=== PATIENT | male | born 1985 | race Caucasian/White ===

== ENCOUNTER 2016-05-18 07:51 | Emergency (ER) | payer SELFPAY ==
[~2016-05-18] VITALS: Ht 182.9 cm; Wt 72.6 kg
[2016-05-18 08:57] VITALS: BP 136/77
== END 2016-05-18 09:00 | disposition home or self-care (01) ==
LOC: M ED 08:49
DX: F41.9 Anxiety disorder, unspecified (principal); R45.4 Irritability and anger

== ENCOUNTER 2016-07-14 07:53 | Emergency (ER) | payer SELFPAY ==
[~2016-07-14] VITALS: Ht 182.9 cm; Wt 75.3 kg
[2016-07-14] MEDS ORDERED: EXCETAB81 PO (08:07)
[2016-07-14] MEDS ORDERED: TYLE500T78 PO (09:22)
[2016-07-14] MEDS ORDERED: AUGM875T27 PO (09:22)
[2016-07-14] MEDS ORDERED: IBUP80TA PO (09:22)
[2016-07-14 09:26] VITALS: BP 125/72
== END 2016-07-14 09:30 | disposition home or self-care (01) ==
LOC: M ED 08:46
DX: K02.9 Dental caries, unspecified (principal); F41.9 Anxiety disorder, unspecified; F17.200 Nicotine dependence, unspecified, uncomplicated

== ENCOUNTER 2017-09-01 20:59 | Emergency (ER) | payer SELFPAY ==
[2017-09-01] MEDS: ONDANSETRON 4MG/2ML VIAL (J2405) IV (21:18)
[2017-09-01] MEDS: KETOROLAC 30 MG/ML VIAL (J1885) IV (21:19)
[2017-09-01 21:21] LABS: BASO # 0.1 10^3/uL (0.0-0.2); BASO % 0.6 % (0.0-1.0); EOS # 0.6 10^3/uL (0.0-0.50); EOS % 3.5 % (0.0-3.0); HEMATOCRIT 40.9 % (42.0-52.0); HEMOGLOBIN 13.9 g/dl (13.5-17.5); IMMATURE GRANULOCYTE % 0.4 % (0-3.0); LYMPH # 3.8 10^3/uL (1.5-4.5); LYMPH % 22.9 % (24.0-44.0); MEAN CORPUSCULAR HEMOGLOBIN 32.1 pg (27.0-33.0); MEAN CORPUSCULAR VOLUME 94.5 fl (80.0-96.0); MONO # 1.3 10^3/uL (0.0-0.8); MONO % 7.9 % (0.0-5.0); NEUTROPHILS # 10.8 10^3/uL (1.8-7.7); NEUTROPHILS % 64.7 % (36.0-66.0); PLATELET COUNT, AUTOMATED 289 10^3/uL (150-450); RED BLOOD COUNT 4.33 10^6/uL (4.30-6.10); RED CELL DISTRIBUTION WIDTH 12.7 % (11.5-14.5); WHITE BLOOD COUNT 16.7 10^3/uL (4.0-10.0)
[2017-09-01] MEDS: NS 1,000 ML IV (21:21)
[2017-09-01 21:27] LABS: CALCIUM OXALATE CRYSTALS RFX MODERATE; KETONE, URINE AUTO RFX TRACE mg/dL (NEGATIVE); MUCUS, URINE RFX SMALL (NEGATIVE); NITRITE, URINE AUTO RFX NEGATIVE (NEGATIVE); RBC, URINE AUTO RFX 22 /HPF (0-3); SPECIFIC GRAVITY UR AUTO RFX 1.028 (1.002-1.035); SQUAM EPITHELIAL CELL UR AURFX 0 /HPF (0-6); WBC, URINE AUTO RFX 4 /HPF (0-3)
[2017-09-01 21:28] LABS: LEUKOCYTE ESTERASE UR AUTO RFX TRACE (NEGATIVE)
[2017-09-01] MEDS: MORPHINE 4 MG/ML 1ML VIAL/SYRINGE (J2270) IV ×2 (21:58→23:30)
[2017-09-01 21:59] LABS: ALBUMIN/GLOBULIN RATIO 1.25 (1.00-1.93); ALKALINE PHOSPHATASE 82 U/L (45-117); ALT/SGPT 21 U/L (12-78); ANION GAP 10 MEQ/L (8-16); AST/SGOT 10 U/L (7-37); BILIRUBIN,DIRECT 0.1 MG/DL (0.0-0.2); BILIRUBIN,TOTAL 0.5 MG/DL (0.2-1.0); BLOOD UREA NITROGEN 14 MG/DL (7-18); CALCIUM LEVEL 8.8 MG/DL (8.5-10.1); CARBON DIOXIDE LEVEL 22 MEQ/L (21-32); CHLORIDE LEVEL 109 MEQ/L (98-107); CREATININE FOR GFR 1.17 MG/DL (0.70-1.30); GLOMERULAR FILTRATION RATE > 60.0 (>60); GLUCOSE, FASTING 128 MG/DL (70-100); POTASSIUM SERUM 3.8 MEQ/L (3.5-5.1); SODIUM LEVEL 141 MEQ/L (136-145); TOTAL PROTEIN 7.2 GM/DL (6.4-8.2)
[2017-09-01] MEDS: TAMSULOSIN 0.4 MG CAP PO (23:42)
[2017-09-01] MEDS: CIPROFLOXACIN 500 MG TAB PO (23:42)
[2017-09-01] MEDS: NORCO 5/325MG TABLET (BULK FOR ED) PO (23:42)
== END 2017-09-02 00:19 | disposition home or self-care (01) ==
LOC: M ED 09-02 00:19
DX: N20.1 Calculus of ureter (principal); N30.90 Cystitis, unspecified without hematuria; N13.30 Unspecified hydronephrosis; F41.9 Anxiety disorder, unspecified; F17.210 Nicotine dependence, cigarettes, uncomplicated
CPT/HCPCS: J2270

== ENCOUNTER → 2018-04-05 | Outpatient (CLI) | payer SELFPAY ==
[~2018-04-05] MED LIST: AUGM875T28 PO; CIPR-249 PO; EXCETAB81 PO; FLOM0.4C39 PO; IBUP80TA PO; NORCOTAB PO; TYLE500T78 PO; ZOFR4TAB14 PO
== END ==
LOC: M OUTALCOH 11:36
PROVIDERS: ATTEND Psychiatry & Neurology Psychiatry
DX: Z03.89 Encounter for observation for other suspected diseases and conditions ruled out (principal)

== ENCOUNTER 2018-04-10 15:00 | Outpatient (RCR) | payer SELFPAY | END 2018-05-05 | LOC: M OUTALCOH 15:00 | PROVIDERS: ATTEND Psychiatry & Neurology Psychiatry | DX: Z03.89 Encounter for observation for other suspected diseases and conditions ruled out (principal) ==